=== PATIENT | male | born 1995 | race American Indian/Alaskan Native ===

== ENCOUNTER 2017-08-24 22:32 | Emergency (ER) | payer MEDICAID, OTHER ==
[2017-08-24 22:37] VITALS: BP 111/64; PULSE 70; RESP 18; TEMP 97.7; O2SAT 98; BMI 23.8
--- NOTE | 2017-08-24 23:10 | ED PDOC ---
HPI: General Adult Time Seen by Provider: 08/24/17 22:54 Chief Complaint (Nursing): Medical Clearance Chief Complaint (Provider): Medical clearance History Per: Patient Additional Complaint(s): Patient needs medical and psychological clearance for incarceration. 22 yo male , PMH pf asthma, presents without any physical complaints. Reports using 25 bags of heroin today, notes that he generally uses 30. Pt AAOx3, asking for food Past Medical History Reviewed: Nursing Documentation, Vital Signs Vital Signs: Last Vital Signs Temp 97.7 F 08/24/17 22:35 Pulse 70 08/24/17 22:35 Resp 18 08/24/17 22:35 BP 111/64 08/24/17 22:35 Pulse Ox 98 08/24/17 23:15 - Medical History PMH: Asthma, Bronchitis Denies: Depression, Diabetes, Hepatitis, HIV, HTN, Chronic Kidney Disease, Seizures, Sexually Transmitted Disease - Family History Family History: States: Unknown Family Hx - Living Arrangements Living Arrangements: With Friends/Others - Social History Alcohol: Social Drugs: Cocaine, Other (heroin) - Immunization History Hx Tetanus Toxoid Vaccination: Yes Hx Influenza Vaccination: No Hx Pneumococcal Vaccination: No - Home Medications Home Medications: Ambulatory Orders Medication Instructions Recorded Gabapentin [Neurontin] 300 mg PO TID #45 cap 08/23/17 Mirtazapine [Remeron] 15 mg PO HS #14 tab 08/23/17 Multimineral/Multivitamin 1 tab PO DAILY #14 tab 08/23/17 [Therapeutic-M Tab] Quetiapine Fumarate [Seroquel] 50 mg PO HS #14 tablet 08/23/17 - Allergies Allergies/Adverse Reactions: Allergies Allergy/AdvReac Type Severity Reaction Status Date / Time lemon Allergy RASH Verified 08/20/17 22:48 peanut Allergy RASH Verified 08/20/17 22:48 Review of Systems ROS Statement: Except As Marked, All Systems Reviewed And Found Negative Physical Exam - Reviewed Nursing Documentation Reviewed: Yes Vital Signs Reviewed: Yes - Physical Exam Appears: Positive for: Well, Non-toxic, No Acute Distress Head Exam: Positive for: ATRAUMATIC, NORMAL INSPECTION, NORMOCEPHALIC Skin: Positive for: Normal Color, Warm, DRY Eye Exam: Positive for: EOMI, Normal appearance, PERRL ENT: Positive for: Normal ENT Inspection Neck: Positive for: Normal, Painless ROM Cardiovascular/Chest: Positive for: Regular Rate, Rhythm Respiratory: Positive for: CNT, Normal Breath Sounds Gastrointestinal/Abdominal: Positive for: Normal Exam, Soft Back: Positive for: Normal Inspection Extremity: Positive for: Normal ROM Neurologic/Psych: Positive for: Alert, Oriented - ECG O2 Sat by Pulse Oximetry: 98 Medical Decision Making Medical Decision Making: EKG: SB at 59 bpm, no axis deviation or acute ST changes, as read by ED MD and [facility] Crisis made aware of consult. Case endorsed to WINSTON Fulton at 0000 pending crisis eval for incarceration and re -eval Disposition - Clinical Impression Clinical Impression: Polysubstance abuse - Patient ED Disposition Is Patient to be Admitted: Transfer of Care - Disposition Disposition: Transfer of Care Disposition Time: 00:00 Condition: STABLE Instructions: General (DC) Forms: [facility] (Botswanan)
--- NOTE | 2017-08-25 00:44 | ED PDOC ---
- ECG O2 Sat by Pulse Oximetry: 98 - Progress ED Course And Treament: Case endorsed to service writer advisor from [facility]TER[facility] pending crisis eval 00:30 Patient evaluated by dry mill worker and cleared for discharge as per Dr. Campbell Disposition - Clinical Impression Clinical Impression: Polysubstance abuse, Adjustment disorder - POA Present On Arrival: None - Disposition Disposition: Discharged/Transfer to Law Enforcement Disposition Time: 00:44 Condition: STABLE Additional Instructions: Patient medically and psychiatrically cleared for incarceration Instructions: Polysubstance Abuse, Adjustment Disorder
--- NOTE | 2017-08-26 15:27 | CARD ---
APPROVED REPORT Date of service: 08/24/2017 EKG Measurement Heart [id number] <Conclusion> Sinus bradycardia Early repolarization Otherwise normal ECG
== END 2017-08-25 00:54 ==
LOC: H.ER 22:32
DX: F43.20 Adjustment disorder, unspecified (principal); F19.10 Other psychoactive substance abuse, uncomplicated

== ENCOUNTER 2017-11-15 15:05 | Emergency (ER) | payer MEDICAID, OTHER ==
[2017-11-15 15:05] VITALS: BMI 23.8
[2017-11-15 15:10] VITALS: BP 114/73; PULSE 74; RESP 18; TEMP 98.2; O2SAT 99
--- NOTE | 2017-11-15 16:32 | ED PDOC ---
HPI: General Adult Chief Complaint (Provider): Medical Clearance History Per: Patient, EMS, Other (PD) History/Exam Limitations: no limitations Onset/Duration Of Symptoms: Hrs Current Symptoms Are (Timing): Still Present Additional Complaint(s): 22 year old male presents to the ED via EMS and under PD custody for medical and psychiatric clearance to be incarcerated. Pt states he injected 5 bags of heroin this morning around 10:00, but currently offers no physical complaints. PMD: none provided <Juanita Ramirez - Last Filed: 11/16/17 23:58> <Roselia Gomez - Last Filed: 11/17/17 17:23> Time Seen by Provider: 11/15/17 15:40 Chief Complaint (Nursing): Medical Clearance Supervising Attending Note - Attestation: I have personally seen and examined this patient.: No I have reviewed all pertinent clinical information, including history, physical exam and plan: Yes <Roselia Gomez - Last Filed: 11/17/17 17:23> Past Medical History Reviewed: Historical Data, Nursing Documentation, Vital Signs Vital Signs: Last Vital Signs Temp 98.2 F 11/15/17 15:07 Pulse 74 11/15/17 15:07 Resp 18 11/15/17 15:07 BP 114/73 11/15/17 15:07 Pulse Ox 99 11/15/17 15:07 - Medical History PMH: Asthma, Bronchitis Denies: Depression, Diabetes, Hepatitis, HIV, HTN, Chronic Kidney Disease, Seizures, Sexually Transmitted Disease - Surgical History Surgical History: No Surg Hx - Family History Family History: States: Unknown Family Hx - Social History Current smoker - smoking cessation education provided: Yes Alcohol: Social Drugs: Other (heroin) - Immunization History Hx Tetanus Toxoid Vaccination: Yes Hx Influenza Vaccination: No Hx Pneumococcal Vaccination: No <Juanita Ramirez - Last Filed: 11/16/17 23:58> Vital Signs: Last Vital Signs Temp 98.2 F 11/15/17 15:07 Pulse 74 11/15/17 15:07 Resp 18 11/15/17 15:07 BP 114/73 11/15/17 15:07 Pulse Ox 99 11/16/17 23:59 <Roselia Gomez - Last Filed: 11/17/17 17:23> - Allergies Allergies/Adverse Reactions: Allergies Allergy/AdvReac Type Severity Reaction Status Date / Time lemon Allergy RASH Verified 08/20/17 22:48 peanut Allergy RASH Verified 08/20/17 22:48 Review of Systems ROS Statement: Except As Marked, All Systems Reviewed And Found Negative Psych: Positive for: Other (substance abuse) <Juanita Ramirez - Last Filed: 11/16/17 23:58> Physical Exam - Reviewed Nursing Documentation Reviewed: Yes Vital Signs Reviewed: Yes - Physical Exam Appears: Positive for: No Acute Distress Head Exam: Positive for: ATRAUMATIC, NORMOCEPHALIC Skin: Positive for: Normal Color (no cellulitis). Negative for: Rash Eye Exam: Positive for: Normal appearance ENT: Positive for: Normal ENT Inspection Neck: Positive for: Normal, Painless ROM, Supple Cardiovascular/Chest: Positive for: Regular Rate, Rhythm Respiratory: Positive for: Normal Breath Sounds. Negative for: Accessory Muscle Use, Respiratory Distress Gastrointestinal/Abdominal: Positive for: Normal Exam, Soft. Negative for: Tenderness Neurologic/Psych: Positive for: Alert (and awake) <Juanita Ramirez - Last Filed: 11/16/17 23:58> - ECG O2 Sat by Pulse Oximetry: 99 (RA) Pulse Ox Interpretation: Normal <Juanita Ramirez - Last Filed: 11/16/17 23:58> Medical Decision Making Medical Decision Making: Time: 1600 Initial Impression: medical clearance Initial Plan: --Pt is medically and psychiatrically cleared by both W[facility]ON and forest worker. Stable for incarceration. Scribe Attestation: Documented by Marion Hollingsworth, acting as a scribe for Juanita Ramirez PA-C. Provider Scribe Attestation: All medical record entries made by the Scribe were at my direction and personally dictated by me. I have reviewed the chart and agree that the record accurately reflects my personal performance of the history, physical exam, medical decision making, and the department course for this patient. I have also personally directed, reviewed, and agree with the discharge instructions and disposition. <Juanita Ramierz - Last Filed: 11/16/17 23:58> Disposition - Disposition Disposition: Discharged/Transfer to Law Enforcement Disposition Time: 16:00 <Juanita Ramirez - Last Filed: 11/16/17 23:58> <Roselia Gomez - Last Filed: 11/17/17 17:23> - Clinical Impression Clinical Impression: Substance abuse - Disposition Condition: STABLE Additional Instructions: Medically and psychiatrically stable and cleared for incarceration Instructions: General (DC) Forms: [employer] (Croatian)
== END 2017-11-15 16:45 ==
LOC: H.ER 15:05
DX: F11.10 Opioid abuse, uncomplicated (principal); F17.200 Nicotine dependence, unspecified, uncomplicated; J45.909 Unspecified asthma, uncomplicated